=== PATIENT | male | born 1970 | race Caucasian/White ===

== ENCOUNTER 2024-09-05 15:25 | Emergency (ER) | payer MEDICAID ==
[~2024-09-05] VITALS: Ht 177.8 cm; Wt 131.3 kg
[2024-09-05 16:16] LABS: BASOPHILS % (AUTO) 0.6 % (0-1); EOSINOPHILS % (AUTO) 0.5 % (0-6); HEMATOCRIT 45.3 % (42.0-52.0); HEMOGLOBIN 16.1 g/dl (14.0-17.9); LYMPHOCYTES # (AUTO) 1.3 X10'3 (1.1-4.8); MEAN CORPUSCULAR HEMOGLOBIN 32.7 PG (27.0-31.0); MEAN CORPUSCULAR HGB CONC 35.5 g/dL (33.0-36.5); MEAN CORPUSCULAR VOLUME 92.2 FL (78-98); MEAN PLATELET VOLUME 8.8 FL (7.4-10.4); MONOCYTES # (AUTO) 0.6 X10'3 (0-0.9); MONOCYTES % (AUTO) 8.6 % (2-12); NEUTROPHILS # (AUTO) 4.5 X10'3 (1.8-7.7); NEUTROPHILS % (AUTO) 70.3 % (42-75); PLATELET COUNT 216 X10'3 (140-440); RED BLOOD COUNT 4.91 X10'6 (4.70-6.10); RED CELL DISTRIBUTION WIDTH 12.9 % (11.5-14.5); WHITE BLOOD COUNT 6.4 X10'3 (4.5-11.0)
[2024-09-05 16:41] LABS: ALBUMIN 3.7 G/DL (3.4-5.0); ALBUMIN/GLOBULIN RATIO 0.9 (1.1-1.5); ALKALINE PHOSPHATASE 115 IU/L (46-116); BILIRUBIN,TOTAL 0.7 MG/DL (0.1-1.0); BLOOD UREA NITROGEN 14 MG/DL (7-18); BUN/CREATININE RATIO 9.6 (10.0-20.0); CALCIUM 8.9 MG/DL (8.5-10.1); CHLORIDE 95 MMOL/L (99-107); CREATININE 1.46 MG/DL (0.60-1.10); TOTAL CARBON DIOXIDE 20.9 MMOL/L (24-32); TOTAL PROTEIN 7.9 G/DL (6.4-8.2); eCRCL 61 ML/MIN; eGFR 51 ML/MIN
[2024-09-05] MEDS: normal saline 1000ML IV soln IV ONE (16:59)
[2024-09-05] MEDS: insulin regular, human 10 units/0.1 ml syringe IV ONE ×3 (16:59→19:43)
[2024-09-05 17:30] LABS: GLUCOSE 739 MG/DL (70-104)
[2024-09-05 17:31] LABS: ALANINE AMINOTRANSFERASE 33 U/L (12-78); ASPARTATE AMINO TRANSFERASE 21 U/L (10-37)
[2024-09-05 17:32] LABS: ANION GAP 17 (8-16); SODIUM 133 MMOL/L (135-145)
[2024-09-05 18:02] LABS: ACETONE NEGATIVE (NEGATIVE)
[2024-09-05] MEDS ORDERED: INSU100V64 SQ (18:53)
[2024-09-05] MEDS ORDERED: LANTUS SUBCUT (18:53)
[2024-09-05 19:48] VITALS: BP 136/92; PULSE 82; RESP 16; TEMP 98.7; O2SAT 97
== END 2024-09-05 19:50 | disposition home or self-care (01) ==
LOC: ER 15:26
DX: R73.9 Hyperglycemia, unspecified (principal); Z79.4 Long term (current) use of insulin
CPT/HCPCS: 36415; 80053; 82009; 82948; 85025; 96361; 96374; 96376; 99284; J1815; J7030